=== PATIENT | female | born 1955 | race African-American/Black ===

== ENCOUNTER 2021-10-13 21:55 | Emergency (ER) | payer BC ==
[~2021-10-13 21:55] MED LIST: Iopamidol 300 61% 100 ML VIAL FS ONE
[2021-10-13] MEDS ORDERED: Morphine 2 MG/ML VIAL ONE (23:27)
[2021-10-13 23:37] LABS: Hemoglobin 11.6 g/dL (12.0-15.5); Mean Corpuscular HGB CONC 31.4 g/dL (32.0-36.0); Mean Corpuscular Hemoglobin 27.9 pg (27.0-33.0); Mean Corpuscular Volume 88.7 fl (81.6-98.3); Platelet Count 143 10x3/uL (150-450); RBC Distribution Width 18.1 % (11.5-14.5); Red Blood Cell (RBC) Count 4.16 10x6/uL (3.90-5.03); White Blood Cell (WBC) Count 14.6 10x3/uL (3.5-10.5)
[2021-10-13 23:52] LABS: ALT (SGPT) 7 U/L (8-55); AST (SGOT) 17 U/L (5-34); Albumin 4.1 g/dL (3.4-4.8); Alkaline Phosphatase 74 U/L (40-110); Anion Gap 17 mmol/L (10-20); BUN (Urea Nitrogen) 17 mg/dL (9.8-20.1); Bilirubin, Total 1.3 mg/dL (0.2-1.2); Calc. Creatinine Clearance 0 mL/min (70-130); Calcium 10.4 mg/dL (7.8-10.44); Carbon Dioxide 24 mmol/L (23-31); Chloride 102 mmol/L (98-107); Estimated GFR 84; Glucose 97 mg/dL (80-115); Lipase 27 U/L (8-78); Potassium 4.1 mmol/L (3.5-5.1); Protein, Total 8.1 g/dL (5.8-8.1); Sodium 139 mmol/L (136-145)
[2021-10-14 00:09] LABS: MDiff Complete? YES
[2021-10-14 00:21] LABS: Bilirubin Neg (Negative); Blood, Urine Negative (Negative); Clarity Clear (Clear); Glucose, Urine (Dipstick) Normal (Negative); Ketone, Urine Negative (Negative); Leukocyte 500 (Negative); Nitrite Negative (Negative); Protein, Urine (Dipstick) 30 mg/dl (Neg-Trace); Specific Gravity, Urine 1.025 (1.002-1.036); Urobilinogen Normal mg/dL (Less than 2)
[2021-10-14 00:27] LABS: Bacteria/HPF None Seen HPF (None Seen); RBC/HPF 0-3 HPF (0-3); Squamous Epithelial None Seen HPF (0-3)
[2021-10-14 00:29] LABS: Anisocytosis SLIGHT = 6-15 cells (100X) (0-5/hpf); Elliptocytes SLIGHT = 2-5 cells (100X) (0-1/hpf); Platelet Morphology Comment Appears Adequate
[2021-10-14 00:32] LABS: Band 25 % (5-11); Eosinophils 1 % (0-10); Lymphocytes 16 % (21-51); Monocytes 5 % (0-10); Neutrophil 53 % (42-75)
== END 2021-10-14 02:20 | disposition home or self-care (01) ==
LOC: CSHERS 21:55
DX: R16.2 Hepatomegaly with splenomegaly, not elsewhere classified (principal); E03.9 Hypothyroidism, unspecified; Z79.899 Other long term (current) drug therapy; Z79.82 Long term (current) use of aspirin
CPT/HCPCS: 74177; 80053; 81003; 81015; 83605; 83690; 85025; J2270; Q9967

== ENCOUNTER 2022-03-01 12:49 | Outpatient (CLI) | payer BC ==
[2022-03-01] MEDS ORDERED: Iopamidol 300 61% 100 ML VIAL FS ONE (15:41)
== END 2022-03-01 12:50 | disposition home or self-care (01) ==
LOC: CSHCP 12:49
PROVIDERS: ATTEND Internal Medicine Hematology & Oncology
DX: Z01.818 Encounter for other preprocedural examination (principal); D75.81 Myelofibrosis; R16.1 Splenomegaly, not elsewhere classified; K76.6 Portal hypertension; I51.9 Heart disease, unspecified; I51.7 Cardiomegaly; R94.2 Abnormal results of pulmonary function studies; R16.2 Hepatomegaly with splenomegaly, not elsewhere classified; D73.9 Disease of spleen, unspecified; I86.8 Varicose veins of other specified sites; K59.00 Constipation, unspecified; N28.1 Cyst of kidney, acquired
CPT/HCPCS: 74177; 93306; 94010; 94726; 94729; 94760; Q9967